=== PATIENT | female | born 1985 | race African-American/Black ===

== ENCOUNTER 2017-05-04 11:25 | Emergency (ER) | payer MEDICAID ==
[~2017-05-04] VITALS: Ht 165.1 cm; Wt 86.2 kg
[2017-05-04 11:40] VITALS: BP 108/70
--- NOTE | 2017-05-04 12:39 | Emergency Room Report ---
History of Present Illness General Chief Complaint: Upper Extremity Injury Source: Patient Present Illness HPI 31-year-old female presents to the emergency department complaining of 9/10 in severity pain, swelling and tenderness to the right middle finger since yesterday. Patient reports pain initially started on the medial aspect of the cuticle and then progressed to the entire cuticle line of the fingernail. She reports having artificial nails placed approximately one week ago. She denies nail-biting. Denies fever pad tenderness. Pain is exacerbated upon palpation. Reports that she is able to bend her finger at the distal portion. Denies CP, Palpitations, LOC, AMS, dizziness, Changes in Vision, Sensation, paresthesias, or a sudden severe headache. Allergies: Uncoded Allergies: SULFA (Allergy, Severe, Hives, 05/04/17) Patient History Past Medical History: see triage record Past Surgical History: none Pertinent Family History: none Last Menstrual Period: last month Now: No Reviewed Nursing Documentation: PMH: Agreed, PSxH: Agreed Nursing Documentation-PMH Hx Gastrointestinal Problems: Yes - ulcerative colitis Review of Systems All Other Systems: negative except mentioned in HPI Physical Exam Vital Signs Date Time Temp Pulse Resp B/P (MAP) Pulse Ox O2 Delivery O2 Flow Rate FiO2 05/04/17 11:36 98.6 97 18 106/69 98 Room Air Sp02 EP Interpretation: reviewed, normal General Appearance: no apparent distress, alert, GCS 15, non-toxic Head: normocephalic, atraumatic ENT: hearing grossly normal, normal voice Neck: full range of motion Respiratory: lungs clear, normal breath sounds, speaking full sentences Cardiovascular #1: regular rate, rhythm, normal capillary refill Musculoskeletal: back normal, gait/station normal, normal range of motion, non- tender Neurologic: alert, oriented x3, responsive, motor strength/tone normal, sensory intact, speech normal, grossly normal Psychiatric: judgement/insight normal Skin: no rash, warm/dry, well hydrated, other - erythema, swelling and tenderness to the medial aspect of the RMF nail fold, no finger pad tenderness, no blisters or vesicles. Procedures Additional Procedure Procedure Narrative PARONYCHIA DRAINAGE - verbal consent was received . - lesion was cleaned with betadine prep. - Small incision using a sterile 25g needle to drain the paronychia. pt. tolerated well without complication. - sterile band-aid was then applied afterward. - will d/c pt. with PO abx. Medical Decision Making PA Attestation Dr. Delgado is my supervising Physician whom patient management has been discussed with. Diagnostic Impression: Primary Impression: Paronychia of finger of right hand ER Course 31-year-old female presents to the emergency department complaining of 9/10 in severity pain, swelling and tenderness to the right middle finger since yesterday. Patient reports pain initially started on the medial aspect of the cuticle and then progressed to the entire cuticle line of the fingernail. She reports having artificial nails placed approximately one week ago. She denies nail-biting. Denies fever pad tenderness. Pain is exacerbated upon palpation. Reports that she is able to bend her finger at the distal portion. Pt. is right hand dominant. Denies CP, Palpitations, LOC, AMS, dizziness, Changes in Vision, Sensation, paresthesias, or a sudden severe headache. Ddx considered but are not limited to cellulitis, paronychia, eponychia, ingrown toe nail, fracture, d/L, gout Vital signs: are WNL, pt. is afebrile H&PE are most consistent with Right middle finger paronychia ORDERS: none required at this time, the diagnosis is clinical ED INTERVENTIONS: - verbal consent was received . - lesion was cleaned with betadine prep. - Small incision using a sterile 25g needle to drain the paronychia. pt. tolerated well without complication. - sterile band-aid was then applied afterward. - will d/c pt. with PO abx. DISCHARGE: At this time pt. is stable for d/c to home. Will provide printed patient care instructions, and any necessary prescriptions. Care plan and follow up instructions have been discussed with the patient prior to discharge. Last Vital Signs Date Time Temp Pulse Resp B/P (MAP) Pulse Ox O2 Delivery O2 Flow Rate FiO2 05/04/17 11:36 98.6 97 18 106/69 98 Room Air Disposition: HOME, SELF-CARE Condition: Stable Patient Instructions: Paronychia Additional Instructions: Take medications as directed. Follow up with a Primary Care Provider in 3-5 days, even if your symptoms have resolved. --Please review list of primary care clinics, if you do not already have a primary care provider Return sooner to ED if new symptoms occur, or current symptoms become worse. - Please note that this Emergency Department Report was dictated using [email or web address] technology software, occasionally this can lead to erroneous entry secondary to interpretation by the dictation equipment. Indiana Dumont May 04, 2017 12:38
[2017-05-04] MEDS ORDERED: IBUPROFEN600 MG ORAL (12:44)
[2017-05-04] MEDS ORDERED: MUPIROCIN22 GM TOPIC (12:44)
[2017-05-04] MEDS ORDERED: CLINDAMYCIN HC300 MG ORAL (12:44)
[2017-05-04 12:50] VITALS: BP 106/69
== END 2017-05-04 13:03 | disposition home or self-care (01) ==
LOC: EMR 12:50
DX: L03.011 Cellulitis of right finger (principal); Z88.2 Allergy status to sulfonamides
CPT/HCPCS: 10060; 99283

== ENCOUNTER 2017-05-07 12:27 | Emergency (ER) | payer MEDICAID ==
[~2017-05-07] VITALS: Ht 165.1 cm; Wt 86.2 kg
[~2017-05-07 12:27] MED LIST: CLINDAMYCIN HC300 MG ORAL; IBUPROFEN600 MG ORAL; MUPIROCIN22 GM TOPIC
[2017-05-07] MEDS ORDERED: Augmentin 875mg Tab ORAL ONE (12:45)
[2017-05-07] MEDS ORDERED: Bacitracin Oint UD TOPIC ONE (12:45)
[2017-05-07] MEDS ORDERED: Lidocaine 1% MPF 10mg/ml 5ml INJ ONE (12:45)
[2017-05-07] MEDS ORDERED: traMADol 50mg tab ORAL ONE (12:45)
[2017-05-07] MEDS ORDERED: TRAMADOL HCL50 MG ORAL (13:16)
[2017-05-07 13:25] VITALS: BP 107/70
--- NOTE | 2017-05-07 13:44 | Emergency Room Report ---
History of Present Illness General Chief Complaint: Pain Source: Patient Present Illness HPI The patient is a 31-year-old female presenting for continued pain of her right middle finger. She was seen in this emergency department 3 days prior for the same complaint and diagnosed with paronychia. Incision was done at that time and the patient was given prescription for antibiotics which the patient states that she filled but has not began taking yet. She states that pain and swelling have now worsened. Pain is a 9/10 dull ache and does not radiate. Worse with touch. She denies any injury to the area and denies biting her nails. She denies other symptoms including fever, chills, numbness, stiffness Allergies: Uncoded Allergies: SULFA (Allergy, Severe, Hives, 05/04/17) Patient History Past Medical History: see triage record Pertinent Family History: none Reviewed Nursing Documentation: PMH: Agreed, PSxH: Agreed Nursing Documentation-PMH Hx Gastrointestinal Problems: Yes - ulcerative colitis Review of Systems All Other Systems: negative except mentioned in HPI Physical Exam Vital Signs Date Time Temp Pulse Resp B/P (MAP) Pulse Ox O2 Delivery O2 Flow Rate FiO2 05/07/17 12:29 98.1 101 20 107/70 99 Room Air Sp02 EP Interpretation: reviewed, normal General Appearance: no apparent distress, alert, GCS 15, non-toxic Head: normocephalic, atraumatic Eyes: bilateral eye normal inspection, bilateral eye PERRL ENT: hearing grossly normal, normal pharynx, no angioedema, normal voice Neck: full range of motion, supple/symm/no masses Musculoskeletal: back normal, gait/station normal, normal range of motion, tender - R distal 3rd digit Neurologic: alert, oriented x3, responsive, motor strength/tone normal, sensory intact, speech normal Psychiatric: judgement/insight normal, memory normal, mood/affect normal, no suicidal/homicidal ideation Skin: other - fluctuance of R 3rd nail fold Lymphatic: no adenopathy Procedures Incision and Drainage Incision and Drainage : Consent: Verbal Site: R 3rd digit Blade Size: 11 I & D Procedure: betadine prep, sterile drapes applied Wound Location: upper extremity Wound's Depth, Shape: superficial, linear Wound Length (cm): 1 Wound Explored: contaminated Irrigated w/ Saline (ccs): 50 Anesthesia: 1% Lidocaine Volume Anesthetic (ccs): 5 Splint Applied?: No Sling Applied?: No Patient Tolerated: Well Complications: None Medical Decision Making PA Attestation Dr. Delgado is my supervising physician. Patient management was discussed with my supervising physician Diagnostic Impression: Primary Impression: Paronychia ER Course The patient is a 31-year-old female presenting for continued pain of her right middle finger. Differential diagnoses considered but not limited to: paronychia, felon, cellulitis, insect bite PE: afebrile. NAD TTP and swelling to the R 3rd nail fold. Fluctuant. No fluctuance over pad of finger. Full AROM intact. SILT Betadine prep was used to clean the skin and surrounding area. One percent lidocaine without epinephrine was used for digital block. A #11 blade was used to make an incision at the base of the nail. Once the incision was made, purulent material was expressed with blood. The wound was then cleaned and sterile dressing applied. The patient was told she needs to complete the course of antibiotics which she was prescribed. She will FU with PMD. Return precautions given including if she notices fever, chills, numbness, stiffness of finger, or continued swelling Last Vital Signs Date Time Temp Pulse Resp B/P (MAP) Pulse Ox O2 Delivery O2 Flow Rate FiO2 05/07/17 13:25 98.1 20 107/70 99 Room Air 05/07/17 12:29 101 Status: improved Disposition: HOME, SELF-CARE Condition: Improved Scripts Tramadol Hcl* (ULTRAM*) 50 Mg Tablet 50 MG ORAL Q6H Y for For Pain, #5 TAB 0 Refills Prov: FIOR GOLDSMITH 05/07/17 Referrals: [facility] (PCP) Patient Instructions: Paronychia Additional Instructions: I discussed my findings with the patient. All questions and concerns have been answered. Treatment and medication compliance have been addressed. I advised the patient that they need to follow up with primary doctor within 3 days for wound check. Return to ED if symptoms worsen, new symptoms arise such as fever, if you are unable to bend your finger, or if needed for any reason. Patient verbalized understanding of discharge instructions. *Make sure to take your antibiotics as prescribed from your previous visit* FIOR GOLDSMITH May 07, 2017 13:44
== END 2017-05-07 13:25 | disposition home or self-care (01) ==
LOC: EMR 12:35
DX: L03.011 Cellulitis of right finger (principal); Z88.2 Allergy status to sulfonamides
CPT/HCPCS: 10060; 99284

== ENCOUNTER 2017-06-30 00:46 | Emergency (ER) | payer MEDICAID ==
[~2017-06-30] VITALS: Ht 162.6 cm; Wt 89.8 kg
[~2017-06-30 00:46] MED LIST changes: +TRAMADOL HCL50 MG ORAL
[2017-06-30] MEDS ORDERED: LIALDA1.2 GM ORAL (00:52)
[2017-06-30 01:04] VITALS: BP 113/61
--- NOTE | 2017-06-30 01:07 | Emergency Room Report ---
History of Present Illness General Chief Complaint: Upper Respiratory Illness Source: Patient Present Illness HPI 31-year-old female p/w cough and throat pain for 2 days. Pt states cough is productive, with clear non bloody sputum. Denies fever chills sob. Complaints of chest pain only when she coughs. Denies runny nose or myalgias. No sick contacts or recent travel. Patient does not smoke. Still able to drink and eat normally Allergies: Uncoded Allergies: SULFA (Allergy, Severe, Hives, 05/04/17) Patient History Past Medical History: see triage record Past Surgical History: none Pertinent Family History: none Last Menstrual Period: 05/21/17 Now: No : 2 Para: 2 Reviewed Nursing Documentation: PMH: Agreed; PSxH: Agreed Nursing Documentation-PMH Past Medical History: No History, Except For Hx Gastrointestinal Problems: Yes - ulcerative colitis Review of Systems All Other Systems: negative except mentioned in HPI Physical Exam Vital Signs Date Time Temp Pulse Resp B/P (MAP) Pulse Ox O2 Delivery O2 Flow Rate FiO2 06/30/17 00:48 98.6 93 16 113/61 97 Room Air 98.6 Sp02 EP Interpretation: reviewed, normal General Appearance: normal inspection, well appearing, no apparent distress, alert, GCS 15, non-toxic Head: normocephalic, atraumatic Eyes: bilateral eye normal inspection, bilateral eye PERRL, bilateral eye EOMI ENT: pharyngeal erythema, other - no exudates Neck: normal inspection, full range of motion, supple Respiratory: normal inspection, lungs clear, normal breath sounds, no respiratory distress, no retraction, no wheezing, speaking full sentences, chest symmetrical Cardiovascular #1: normal inspection, regular rate, rhythm, no edema, normal capillary refill Cardiovascular #2: 2+ radial (R), 2+ radial (L) Gastrointestinal: normal inspection, non tender, soft, non-distended, no guarding Musculoskeletal: normal inspection, back normal, normal range of motion, non- tender Neurologic: normal inspection, alert, oriented x3, responsive, motor strength/ tone normal, sensory intact, normal gait, speech normal Psychiatric: normal inspection, judgement/insight normal, memory normal Skin: normal inspection, normal color, no rash, warm/dry, well hydrated, normal turgor Medical Decision Making Diagnostic Impression: Primary Impression: Upper respiratory infection Additional Impression: Pharyngitis ER Course 31-year-old female p/w cough and throat pain for 2 days. DDX: Viral URI vs. pneumonia versus pharyngitis Plan: Chest x-ray Motrin ER course: Patient remains nontoxic, not in resp distress. CXR obtained - no acute infiltrate Disposition: Patient is to be discharged home with a prescription of Tessalon Perles and Motrin Strict precautions discussed with patient on when to return to the emergency room including hemoptysis, high fevers, chills, SOB, chest pain which may indicate severe illness. Patient is to follow up with their primary care doctor within 5 days. Patient agrees with plan. Please note that this Emergency Department Report was dictated using [email or web address] agent technology software, occasionally this can lead to erroneous entry secondary to interpretation by the dictation equipment Chest X-ray CXR: Ordered: Yes 1 view Indication: Cough EP interpretation: Yes Interpretation: No consolidation, no effusion, no PTX, no acute cardiopulmonary disease Impression: No acute disease Electronically signed by Omar Connell MD Last Vital Signs Date Time Temp Pulse Resp B/P (MAP) Pulse Ox O2 Delivery O2 Flow Rate FiO2 06/30/17 00:48 98.6 93 16 113/61 97 Room Air 98.6 Disposition: HOME, SELF-CARE Condition: Improved Scripts Benzonatate* (TESSALON PERLE*) 100 Mg Capsule 100 MG ORAL THREE TIMES A DAY, #21 PERLE Prov: Omar Connell M.D. 06/30/17 Ibuprofen* (MOTRIN*) 600 Mg Tablet 600 MG ORAL Q8H PRN for For Pain, #30 TAB 0 Refills Prov: Omar Connell M.D. 06/30/17 Omar Connell M.D. Jun 30, 2017 01:07
[2017-06-30] MEDS ORDERED: TESSALON PERLE100 MG ORAL (01:08)
[2017-06-30] MEDS ORDERED: IBUPROFEN600 MG ORAL (01:08)
[2017-06-30 01:40] VITALS: BP 113/61
--- NOTE | 2017-06-30 11:21 | Diagnostic Imaging Report ---
Indication: Cough Technique: One view of the chest Comparison: none Findings: There is some scarring or atelectasis in the right infrahilar region. The lungs and pleural spaces are otherwise clear. The heart size is normal Impression: Right infrahilar scarring or atelectasis. No acute process otherwise
== END 2017-06-30 01:55 | disposition home or self-care (01) ==
LOC: EMR 01:48
DX: J06.9 Acute upper respiratory infection, unspecified (principal); J02.9 Acute pharyngitis, unspecified; Z88.2 Allergy status to sulfonamides
CPT/HCPCS: 71045; 81025; 99284